=== PATIENT | male | born 1970 | race Two or more races ===

== ENCOUNTER 2025-06-18 20:54 | Emergency (ER) | payer MEDICAID, SELFPAY ==
[2025-06-18 20:56] VITALS: BMI 21.2
[2025-06-18 22:03] VITALS: BP 150/93; PULSE 122; RESP 18; TEMP 36.8; O2SAT 98
--- NOTE | 2025-06-18 22:06 | EKG_ITS ---
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
--- NOTE | 2025-06-18 22:21 | XR_ITS ---
EXAMINATION: PA chest single view TECHNIQUE: 1. Upright PA chest single view Date and time: June 18, 2025, 10:21 p.m. INDICATIONS: Cardiac palpitations and hypertension today. FINDINGS: Normal heart size. Lungs are clear. The osseous structures are intact. IMPRESSION: No active disease
--- NOTE | 2025-06-18 22:22 | PD.EDRME ---
Rapid Medical Screening Exam [facility] Arrival date/time: 06/18/25 20:54 54M with history of HTN and DM presents to ED with 1 day of heart palps and elevated BP. Patient denies CP, SOB, and URI symptoms, as well as drug/alcohol use and fevers/chills. Chief Complaint: General Adult/Misc Complain Vital signs: Vital Signs Temperature 98.2 F 06/18/25 22:03 Pulse Rate 122 H 06/18/25 22:03 Respiratory Rate 18 06/18/25 22:03 Blood Pressure 150/93 H 06/18/25 22:03 Pulse Oximetry (%) 98 06/18/25 22:03 Oxygen Delivery Method Room Air 06/18/25 22:03
[2025-06-18 22:56] LABS: Basophils # (Auto) 0.0 Thou/mm3 (0.0-0.2); Basophils % (Auto) 0 % (0-2.5); Eosinophils # (Auto) 0.0 Thou/mm3 (0.0-0.5); Eosinophils % (Auto) 0 % (0-10); Hematocrit 39.8 % (41.0-53.0); Hemoglobin 12.7 g/dL (13.5-16.0); Immature Granulocytes Auto 0.06 Thou/mm3 (0.00-0.00); Lymphocytes # (Auto) 1.4 Thou/mm3 (1.0-4.8); Lymphocytes % (Auto) 13 % (10-50); Mean Corpuscular HGB Conc 31.9 g/dl (31.0-37.0); Mean Corpuscular Hemoglobin 27.0 pg (25.0-35.0); Mean Corpuscular Volume 85 fL (80-100); Monocytes # (Auto) 0.6 Thou/mm3 (0.0-0.8); Monocytes % (Auto) 5 % (0-12); Neutrophils # (Auto) 8.8 Thou/mm3 (1.8-7.7); Neutrophils % (Auto) 81 % (37-80); Nucleated Red Blood Cell # 0.00 Thou/mm3 (0.00-0.00); Nucleated Red Blood Cell % 0 /100 WBC (0); Platelet Count 209 Thou/mm3 (140-440); RDW Standard Deviation 41.1 fL (35.1-43.9); Red Blood Count 4.70 Miln/mm3 (4.50-5.90); White Blood Count 10.8 Thou/mm3 (3.8-10.6)
[2025-06-18 23:16] LABS: Alanine Aminotransferase 25 U/L (10-49); Albumin, Serum 4.8 gm/dL (3.5-5.0); Albumin/Globulin Ratio 2.8 (1.2-2.2); Alkaline Phosphatase 82 U/L (46-116); Anion Gap 11 (7-16); Aspartate Amino Transferase 23 U/L (0-34); BUN/Creatinine Ratio 9 Ratio (12-20); Bilirubin,Total 0.4 mg/dL (0.3-1.2); Blood Urea Nitrogen 10 mg/dL (9-23); Calcium 9.3 mg/dL (8.3-10.6); Calcium (Corrected) 9.3 mg/dL (8.5-10.1); Carbon Dioxide 25.9 mMol/L (20.0-31.0); Chloride 100 mMol/L (98-107); Creatinine (Component) 1.1 mg/dL (0.6-1.3); Estimated Creatinine Clearance 67.4 mL/min (>60); Globulin 1.7 gm/dL (2.3-3.5); Glucose 302 mg/dL (74-106); Magnesium 1.5 mg/dL (1.6-2.6); Osmolality,Calculated 283 (275-295); Potassium 4.9 mMol/L (3.4-5.1); Sodium 137 mMol/L (136-145); Total Protein 6.5 gm/dL (5.7-8.2); Troponin I < 0.002 ng/mL (0.0-0.045); eGFR > 60 See Note
[2025-06-18 23:48] LABS: Collection Type, Urine Clean Catch; WBC,Urine 0 /hpf (0-5)
[2025-06-19 00:01] LABS: Amphetamine/Methamp Scrn,U Negative (Negative); Barbiturate Screen,Urine Negative (Negative); Benzodiazepines Screen,Urine Negative (Negative); Benzoylecgonine Screen, Ur Negative (Negative); Fentanyl Screen,Urine Negative (Negative); Opiate Screen,Urine Negative (Negative); THC Screen,Urine Negative (Negative)
[2025-06-19 00:09] LABS: Bilirubin,Urine Negative (Negative); Blood,Urine Negative (Negative); Clarity,Urine Clear (Clear/Hazy); Color,Urine Lt-Yellow (Lt Yel-Yel); Culture Indicated,Urine Not Indicated; Glucose, Urine 4+ (Negative); Ketones,Urine Trace (Negative); Leukocyte Esterase,Urine Negative (Negative); Nitrite,Urine Negative (Negative); PH,Urine 5.5 (5.0-7.0); Protein,Urine Negative (Neg - Trace); RBC,Urine 1 /hpf (0-3); Specific Gravity,Urine 1.026 (1.001-1.035); Squamous Epithelial Cell,Urine 1 /hpf (0-5); Urobilinogen,Urine Negative mg/dL (0.0-1.0)
[2025-06-19 00:30] LABS: Thyroid Stimulating Hormone 3.12 uIU/mL (0.55-4.78)
[2025-06-19 00:34] VITALS: BP 159/90; PULSE 118; RESP 18; TEMP 36.8; O2SAT 98
--- NOTE | 2025-06-19 02:18 | EDNOTE_ITS ---
ED General RME/HPI General Chief complaint: General Adult/Misc Complain Stated complaint: BLOOD PRESSURE HIGH Arrival date/time: 06/18/25 20:54 RME / HPI RME / HPI narrative: 06/18/25 20:54 54M with history of HTN and DM presents to ED with 1 day of heart palps and elevated BP. Patient denies CP, SOB, and URI symptoms, as well as drug/alcohol use and fevers/chills. Dr. Ontiveros?s Main ED Evaluation: 54yo male with a history of HTN, DM presents to the ED for a chief complaint of palpitations x 1 day. Patient states he had difficulty sleeping last night and thinks his palpitations may be due to that. Patient denies any cough, chest pain, shortness of breath, fever, chills, or any other associated symptoms. Denies any alcohol or illicit drug use. NKA. Related Data Allergies Allergy/AdvReac Type Severity Reaction Status Date / Time NKA* Allergy Uncoded 01/28/16 08:00 Review of Systems Review of Systems Systems Reviewed: All systems reviewed, normal except as documented Past Medical History Past Medical History NEUROLOGIC: Negative Neurological Disorders CARDIAC: Positive Cardiac Disorders and Hypertension; Negative Congestive Heart Failure RESPIRATORY: Negative Respiratory Disorders or Chronic Obstructive Pulmonary Disease (COPD) GASTROINTESTINAL: Negative Gastrointestinal Disorders GENITOURINARY: Negative Genitourinary Disorders or Renal Disease MUSCULOSKELETAL: Negative Musculoskeletal Disorders ENDOCRINE: Positive Endocrine Disorders and Diabetes Mellitus Type 2; Negative Diabetes Mellitus Type 1 HEMATOLOGIC: Negative Blood Disorders OTHER HISTORY: Negative Autoimmune Disease, Anesthesia Reactions, Clostridium Difficile or Cancer Family History FAMILY HISTORY: Negative Family Cardiac Disorders Surgical History SURGICAL: Negative Cardiac Surgery, Endocrine Surgery, Ear Surgery, Abdominal Surgery, Nephrectomy, Joint Replacement, Neurologic Surgery or Mastectomy Social History SMOKING STATUS: Never smoker ED Exam Narrative Physical exam: Generally patient is alert and in no obvious distress, heart mildly tachycardic rate at 104 with regular rhythm, lungs clear to auscultation equal bilaterally, neck showed no goiter, abdomen soft bowel sounds present all send nontender, neurologic exam [place] Coma Scale 15 Course Quality Measures none Orders Category Date Time Status EKG (ED ONLY) *Do not use* NOW Care 06/18/25 22:06 Completed EKG (ED Only) Stat Exams 06/18/25 22:06 Draft XR chest 1V portable Stat Exams 06/18/25 22:21 Completed CBC Stat Lab 06/18/25 22:37 Completed Comprehensive Metabolic Panel Stat Lab 06/18/25 22:37 Completed Drug Screen,Urine Stat Lab 06/18/25 22:53 Completed Magnesium Stat Lab 06/18/25 22:37 Completed Thyroid Stimulating Hormone Stat Lab 06/18/25 22:37 Completed Troponin I Stat Lab 06/18/25 22:37 Completed Urinalysis, C/S if Indicated Stat Lab 06/18/25 22:53 Completed Vital Signs Vital signs: Vital Signs Temperature 98.2 F 06/18/25 22:03 Pulse Rate 122 H 06/18/25 22:03 Respiratory Rate 18 06/18/25 22:03 Blood Pressure 150/93 H 06/18/25 22:03 Pulse Oximetry (%) 98 06/18/25 22:03 Oxygen Delivery Method Room Air 06/18/25 22:03 Discharge Plan Plan Patient Disposition: HOME (Self Care) Prescriptions/Referrals Referrals: No Primary/Family,Physician [Primary Care Provider] - In 1 week Problem List Clinical Impression: Palpitations Patient/Caregiver Discharge Instructions Education Materials: ED Palpitations Additional Instructions: Return if symptoms persist for the next 1 week. Print Language: Luxembourgish Stand Alone Forms: Tessie Award Info., Patient Portal Info Letter MDM Narrative MDM hospital course (for use when minimal MDM required): Scribe Attestation: 06/19/25 Mimi Molina am scribing for and in the presence of Dr. Ontiveros. Cardiac workup was unremarkable. TSH was normal. EKG shows sinus tachycardia at a rate of 112 without ischemic change or ectopy. I question the patient about substance abuse which she denied. He denies excessive caffeine. He has not been sleeping well lately. With a 1 day history of tachycardia with palpitations I do not believe that it warrants treatment at this time. If he is still having this problem over the course of the next 1 week he may return and we may consider metoprolol therapy at that time. Clinical Information Provided by: patient Medical Records reviewed [facility] (Per chart review, patient has no previous ED visits or admissions to this facility.) Meds/Rx considered, not ordered None Labs/Rad/Tests considered, not ordered None Chronic Illness/Social Conditions Explain: Hx DM, HTN Labs Labs: interpreted by me Imaging Imaging interpretation: interpreted by me Imaging Interpretation(s): [facility] Report Signed Patient: MEDINA FRANCE Record#: [id number] Birthdate: 1970 Age/Sex: 54 / M Location: [facility] Attending Dr: Ordering Physician: Garfield Fuentes PA-C Date of Service: 06/18/25 Procedure(s): XR chest 1V portable Accession Number(s): [id number] cc: Moreno Valentin MD; Garfield Fuentes PA-C~ EXAMINATION: PA chest single view TECHNIQUE: 1. Upright PA chest single view Date and time: June 18, 2025, 10:21 p.m. INDICATIONS: Cardiac palpitations and hypertension today. FINDINGS: Normal heart size. Lungs are clear. The osseous structures are intact. IMPRESSION: No active disease Dictated By: Moreno Valentin MD Signed By: <Electronically signed by Moreno Valentin MD in OV> 06/18/25 9655 Diagnosis Differential Diagnosis ED Complaint MDM: See MDM
[2025-06-19 02:57] VITALS: BP 150/89; PULSE 93; RESP 18; O2SAT 97
== END 2025-06-19 02:57 | disposition home or self-care (01) ==
PROVIDERS: Physician Assistant; Emergency Provider Emergency Medicine
DX: R00.2 Palpitations (principal); I10 Essential (primary) hypertension; E11.9 Type 2 diabetes mellitus without complications
CPT/HCPCS: 36415; 71045; 80053; 80307; 81001; 83735; 84443; 84484; 85025; 93005; 99282